=== PATIENT | female | born 1935 | race Two or more races ===

== ENCOUNTER 2021-12-27 11:11 | Emergency (ER) | payer OTHER ==
[~2021-12-27] VITALS: Ht 154.9 cm; Wt 76.2 kg
== END 2021-12-27 17:06 | disposition home or self-care (01) ==
LOC: ER 11:11
DX: S09.90XA Unspecified injury of head, initial encounter (principal); V43.62XA Car passenger injured in collision with other type car in traffic accident, initial encounter; Y93.89 Activity, other specified; Y92.413 State road as the place of occurrence of the external cause; Y99.8 Other external cause status; S89.92XA Unspecified injury of left lower leg, initial encounter; S29.9XXA Unspecified injury of thorax, initial encounter